=== PATIENT | female | born 1995 ===

== ENCOUNTER 2021-01-12 10:12 | Outpatient (REF) | payer MEDICAID, SELFPAY ==
[2021-01-13 09:22] LABS: BV Int Neg Control Negative (Negative); BV Int Pos Control Positive (Positive)
[2021-01-13 13:32] LABS: C. trachomatis RNA TMA NOT DETECTED (NOT DETECTED); N. gonorrhoeae RNA TMA NOT DETECTED (NOT DETECTED)
[2021-01-14 18:11] LABS: HPV mRNA E6/E7 rflx Not Detected (Not Detected)
== END 2021-01-12 10:13 | disposition home or self-care (01) ==
LOC: HO.LAB 10:12
PROVIDERS: Visit Provider Advanced Practice Midwife
DX: Z01.411 Encounter for gynecological examination (general) (routine) with abnormal findings (principal); Z11.51 Encounter for screening for human papillomavirus (HPV); N64.4 Mastodynia; N89.8 Other specified noninflammatory disorders of vagina; R87.615 Unsatisfactory cytologic smear of cervix; Z20.2 Contact with and (suspected) exposure to infections with a predominantly sexual mode of transmission
CPT/HCPCS: 36415; 87480; 87491; 87510; 87591; 87624; 87660; 88142

== ENCOUNTER → 2021-01-13 13:51 | Outpatient (REF) | payer MEDICAID, SELFPAY ==
--- NOTE | 2021-01-13 14:00 | ECG_ITS ---
Hook-up date: 2021-01-13 14:10:00 Duration: 25:35:00 Test Indications: PALPITATIONS Medications: 624274 QRS complexes * Ventricular ectopics which represent % of total QRS comp. * Supraventricular ectopics which represent % of total QRS comp. * Paced QRS complexs which represent % of total QRS comp. VENTRICULAR ECTOPY * Isolated * Bigeminal Cycles * Couplets * Runs * Beats in Runs * Beats LONGEST at * BPM at :: -- * Beats FASTEST at * BPM at :: -- SUPRAVENTRICULAR ECTOPY * Isolated * Couplets * Runs * Beats in Runs * Beats LONGEST at * BPM at :: -- * Beats FASTEST at * BPM at :: -- HEART RATES 53 MIN at 06:29:13 2021-01-14 72 AVG 128 MAX at 12:48:24 2021-01-14 LONGEST RR 1.2560 secs at 07:37:21 2021-01-14 S-T LEVELS Channel 1 - 128 mm at 14:10:00 2021-01-13 - 128 mm at 14:10:00 2021-01-13 Channel 2 - 128 mm at 14:10:00 2021-01-13 - 128 mm at 14:10:00 2021-01-13 Channel 3 - 128 mm at 03:32:91 -- - 128 mm at 03:32:91 Underlying rhythm is sinus; Average ventricular rate 72/min; range 53-128/min; No significant ectopy, tachy or fred-arrhythmias; Patient did not report any symptoms in the diary Referred By: Jose Manuel Weems Overread By: VERONICA PEDERSON
== END ==
LOC: HO.CARD 13:51
PROVIDERS: Visit Provider Internal Medicine
DX: R00.2 Palpitations (principal)
CPT/HCPCS: 93225; 93226

== ENCOUNTER 2021-02-02 14:13 | Outpatient (REF) | payer MEDICAID, SELFPAY ==
--- NOTE | ~2021-02-02 | US_ITS ---
EXAMINATION: LEFT BREAST ULTRASOUND CLINICAL INFORMATION: Pain 2-3 months quadrant, axilla, and areola. COMPARISON: None TECHNIQUE: Targeted left breast ultrasound FINDINGS: No abnormal cystic or solid mass identified. No region of abnormal distal sound shadowing. No edematous change within the parenchyma. US/US breast LT complete IMPRESSION: No specific ultrasound findings to suggest malignancy of the left breast. BI-RADS 1, negative Clinical follow-up.
== END 2021-02-02 14:14 | disposition home or self-care (01) ==
LOC: HO.MAMMO 14:13
PROVIDERS: Visit Provider Advanced Practice Midwife
DX: N64.4 Mastodynia (principal)
CPT/HCPCS: 76641

== ENCOUNTER → 2021-02-04 13:29 | Outpatient (BNVA) | payer MEDICAID, SELFPAY | PROVIDERS: Visit Provider Advanced Practice Midwife ==

== ENCOUNTER 2022-01-14 10:04 | Outpatient (REF) | payer MEDICAID, SELFPAY ==
[2022-01-14 13:14] LABS: Syphilis Screen Nonreactive (Nonreactive)
[2022-01-14 16:22] LABS: CT PCR NOT DETECTED (Not Detect.); NG PCR NOT DETECTED (Not Detect.)
[2022-01-15 08:07] LABS: HBsAGNum1 0.21 S/CO (0.00-0.99); HIV AB/AG Nonreactive (Nonreactive); HIV Num 1 0.05 S/CO (0.00-0.99); Hepatitis B Surface Antigen Negative (Negative)
[2022-01-15 08:50] LABS: ~HepC Num1 0.11 S/CO (0.00-0.79); ~Hepatitis C Antibody Nonreactive (Nonreactive)
[2022-01-15 12:15] LABS: BV Int Neg Control Negative (Negative); BV Int Pos Control Positive (Positive)
== END 2022-01-14 10:05 | disposition home or self-care (01) ==
LOC: HO.LAB 10:04
PROVIDERS: PCP Internal Medicine; Visit Provider Advanced Practice Midwife
DX: Z01.411 Encounter for gynecological examination (general) (routine) with abnormal findings (principal); Z11.4 Encounter for screening for human immunodeficiency virus [HIV]; N89.8 Other specified noninflammatory disorders of vagina; Z20.2 Contact with and (suspected) exposure to infections with a predominantly sexual mode of transmission
CPT/HCPCS: 36415; 86780; 86803; 87340; 87389; 87480; 87491; 87510; 87591; 87660

== ENCOUNTER 2022-02-01 12:25 | Outpatient (REF) | payer MEDICAID, SELFPAY ==
--- NOTE | ~2022-02-01 | US_ITS ---
EXAMINATION: US THYROID CLINICAL INFORMATION: Hypothyroidism. COMPARISON: Ultrasound thyroid soft tissues neck 03/30/2019 and10/26/2017. TECHNIQUE: Linear transducer grayscale and color Doppler examination with attention to the region of the thyroid. FINDINGS: SIZE: Measurements of the thyroid lobes and nodules are given in sagittal, anteroposterior and transverse dimensions respectively. Right Thyroid Lobe: 4.5 x 1.8 x 1.5 cm, volume 6.3 mL. Previously 4.8 x 1.8 x 1.4 cm, volume 6.3 mL. Parenchyma: The gland echotexture is heterogeneous. Thyroid vascularity is increased. Left Thyroid Lobe: 4.4 x 2.0 x 1.5 cm, volume 6.8 mL. Previously 4.0 x 1.8 x 1.4 cm, volume 5.1 mL. Parenchyma: The gland echotexture is heterogeneous. Thyroid vascularity is increased. Isthmus: 0.5 cm in maximum AP dimension. Previously 0.5 cm. Estimated total number of nodules greater than or equal to 1 cm: 0. Power Bender Operator nodules are described as follows: NODES: No lymphadenopathy is seen in the tissue surrounding the thyroid gland. US/US thyroid IMPRESSION: Diffusely heterogeneous hypervascular thyroid gland. No focal nodule appreciated.
== END 2022-02-01 12:26 | disposition home or self-care (01) ==
LOC: HO.US 12:25
PROVIDERS: PCP Internal Medicine; Visit Provider Internal Medicine
DX: E03.9 Hypothyroidism, unspecified (principal)
CPT/HCPCS: 76536

== ENCOUNTER 2023-08-17 10:40 | Outpatient (REF) | payer MEDICAID, SELFPAY | END 2023-08-17 10:41 | disposition home or self-care (01) | LOC: HO.CHCLDS 10:40 | PROVIDERS: Visit Provider Internal Medicine | DX: E03.9 Hypothyroidism, unspecified (principal) | CPT/HCPCS: 36415; 82607; 82746; 83540; 84439; 84443; 85025 ==

== ENCOUNTER 2024-04-08 12:53 | Emergency (ER) | payer MEDICAID, SELFPAY | END 2024-04-08 15:27 | disposition left against medical advice (07) | PROVIDERS: Emergency Provider Emergency Medicine; PCP Internal Medicine | DX: Z53.21 Procedure and treatment not carried out due to patient leaving prior to being seen by health care provider (principal) ==

== ENCOUNTER 2024-09-26 11:08 | Outpatient (AMB) | payer MEDICAID, SELFPAY ==
--- NOTE | 2024-09-26 11:20 | A.OFFVIS_ITS ---
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 She gets a very bad odor. But that is about it she does not ever normally write down when she gets a period but she thinks the last 1 was around September 01 so it should become soon. 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 She is sexually active. She says her primary doctors treating her for anemia and her thyroid and she is taking 1 iron a day and trying to eat better. She has follow-up scheduled with her doctor after she gets repeat labs done. [facility] Medical History (Updated 09/26/24 @ 11:53 by Betty Sierra CNM) History of ovarian cyst Anxiety Thyroid disease Surgical History (Updated 01/14/22 @ 10:55 by Alirio Manuel) History of D&C History of section History of bilateral tubal ligation Social History Alcohol intake: never Female Reproductive History Menstrual Age of Menarche: 12 Date of last menstrual period: 08/27/24 control method: none Total pregnancies: 3 Full term: 2 Ab spontaneous: 1 History of abnormal pap smear: Yes (2015) History of STI: Yes (Chlamydia 2010) Physical Exam Vital Signs: BMI result Body Mass Index 24.5 Const General: healthy appearing, comfortable, no acute distress, well developed and alert Nutritional Appearance: average body habitus Orientation/consciousness: patient oriented x3 Limitations: no limitations HEENT Head: Yes normocephalic Neck Neck: Yes normal visual inspection Chest Chest palpation & inspection: normal inspection of the chest Breast/axilla inspection: normal inspection of the breasts and normal inspection of the axillae Breast/axilla palpation: normal palpation of the breasts and normal palpation of the axillae Resp Effort & Inspection: normal respiratory effort GI Inspection: Yes normal to inspection, No Abdominal wall edema and No distended Palpation (GI): Soft to palpation and nontender Other: External exam within normal limits she has a pinkish brown watery discharge in it there is some malodor to it cervix is nulliparous long thick closed mobile nontender uterus midposition mobile nontender adnexa not enlarged good tone with Kegel. Pap and testing for STIs done. General: Yes bladder normal to palpation External Female Exam: normal external appearance and normal appearance of the urethra Speculum Exam - Vagina: normal appearance of the vagina, normal palpation and normal vaginal discharge Speculum Exam - Cervix: normal appearance of the cervix, normal palpation and nontender Bimanual exam- vagina & uterus: normal bimanual exam, normal palpation, uterine size normal, bladder normal to palpation, consistency normal, normal palpation, uterine mobility normal, uterine shape normal, No Cervical tenderness present, non-tender and no cervical motion tenderness Bimanual Exam- Adnexa, other: normal adnexae, no masses, normal and No adnexal tenderness Neuro General: patient oriented x3 Results Reviewed Results Reviewed: Name: Eli Hood Age/Sex: 25/F Attending: Prabha Stokes CNM : 1995 Submitted by: Prabha Stokes CNM Copies to: Physician,None MR #: [id number] Status: DEP REF Collected: 01/12/21 Location: .LAB Received: 01/13/21 Interpretation Satisfactory for evaluation. Negative for intraepithelial lesion or malignancy. Scant cellularity due to blood. Moderate inflammation. HPV mRNA E6/E7: NOT DETECTED This assay detects E6/E7 viral messenger RNA (mRNA) from 14 high-risk HPV types (16, 18, 31, 33, 35, 39, 45, 51, 52, 56, 58, 59, 66, 68) HPV testing performed by [facility], [place], [place]. See reference laboratory portion of the EMR for entire report. Clinical Information LMP: 12/25/20 Previous PAP test: 01/07/20, WNL Material Received ThinPrep Cervical Copies To Prabha Stokes [address] [place] [address] Physician,None , Electronically Signed By: Sherine Reid 01/17/21 5633 The Pap Test is a screening procedure with the inherent possibility of both f alse negative and false positive results. Results should be interpreted in the context of historic and current clinical findings. Reliability of the Pap Test is enhanced by performing the test on a regular repetitive basis. Patient: Medina Page 1 of 1 Assessment & Plan Assessment & Plan (1) Encounter for annual routine gynecological examination: Code(s): Z01.419 - Encounter for gynecological examination (general) (routine) without abnormal findings Category: Medical (2) Vaginal discharge: Code(s): N89.8 - Other specified noninflammatory disorders of vagina Category: Medical (3) Encounter for screening examination for sexually transmitted disease: Code(s): Z11.3 - Encounter for screening for infections with a predominantly sexual mode of transmission Category: Medical (4) Cervical cancer screening: Code(s): Z12.4 - Encounter for screening for malignant neoplasm of cervix Category: Medical (5) Vaginal odor: Comment: Only the day before menses start, such as today. Code(s): N89.8 - Other specified noninflammatory disorders of vagina Category: Medical Plan -----Discussed in this visit the following: healthy balanced diet, regular and consistent exercise, getting recommended health screens, doing the best she can for her particular health concerns, kegel exercises, pap smear screening and followup recommendations, mammography screening and SBE, normal changes in cycles in her life stage--- . Discussed patient has periods she does not feel that they are very heavy and that would not be a reason for her anemia she thinks she just needs to better. I reviewed the menses in detail she is not finding them painful the only issues this discharge with bad odor the day before some of her menses including today. We will wait testing for STIs to see if there is anything to treat. She was interested in getting blood tests for HIV etc. and she can get them done the same time she gets her follow-up labs for her anemia and her thyroid. Also she needs information for the portal to get on the portal.. Orders: Orders HIV Ab/Ag Today N89.8 - Other specified noninflammatory disorders of vagina, Z01.419 - Encounter for gynecological examination (general) (routine) without abnormal findings, Z11.3 - Encounter for screening for infections with a predominantly sexual mode of transmission, Z12.4 - Encounter for screening for malignant neoplasm of cervix Hepatitis B Surface Antigen Today N89.8 - Other specified noninflammatory disorders of vagina, Z01.419 - Encounter for gynecological examination (general) (routine) without abnormal findings, Z11.3 - Encounter for screening for infections with a predominantly sexual mode of transmission, Z12.4 - Encounter for screening for malignant neoplasm of cervix Hepatitis C Antibody Today N89.8 - Other specified noninflammatory disorders of vagina, Z01.419 - Encounter for gynecological examination (general) (routine) without abnormal findings, Z11.3 - Encounter for screening for infections with a predominantly sexual mode of transmission, Z12.4 - Encounter for screening for malignant neoplasm of cervix Syphilis Screen Today N89.8 - Other specified noninflammatory disorders of vagina, Z01.419 - Encounter for gynecological examination (general) (routine) without abnormal findings, Z11.3 - Encounter for screening for infections with a predominantly sexual mode of transmission, Z12.4 - Encounter for screening for malignant neoplasm of cervix Bacterial Vaginosis Panel Today Z01.419 - Encounter for gynecological examination (general) (routine) without abnormal findings CT NG by PCR Today Z01.419 - Encounter for gynecological examination (general) (routine) without abnormal findings Pap Smear Today Z01.419 - Encounter for gynecological examination (general) (r outine) without abnormal findings Medications: Discontinued metronidazole 0.75%(37.5mg/5gram) (Metrogel Vaginal) Discontinued Reason: Patient no longer taking 1 appful vaginal BEDTIME 5 days 70 grams 0RF fluconazole (Diflucan) administer on day 1 of therapy Discontinued Reason: Patient no longer taking 150 mg PO DAILY 1 tab 0RF Coding Level of Care Code Est Pt Prev Care 18-39y(00248) Diagnoses Encounter for annual routine gynecological examination Z01.419 Vaginal discharge N89.8 Encounter for screening examination for sexually transmitted disease Z11.3 Cervical cancer screening Z12.4 Vaginal odor N89.8
[2024-09-26 11:21] VITALS: BP 102/72; BMI 24.5
== END 2024-09-26 12:05 | disposition home or self-care (01) ==
PROVIDERS: PCP Internal Medicine; Visit Provider Advanced Practice Midwife
DX: Z01.419 Encounter for gynecological examination (general) (routine) without abnormal findings (principal); N89.8 Other specified noninflammatory disorders of vagina; Z11.3 Encounter for screening for infections with a predominantly sexual mode of transmission; Z12.4 Encounter for screening for malignant neoplasm of cervix
CPT/HCPCS: 99395

== ENCOUNTER 2024-09-26 11:08 | Outpatient (REF) | payer MEDICAID, SELFPAY | END 2024-09-26 11:09 | disposition home or self-care (01) | LOC: HO.LNP 11:08 | PROVIDERS: PCP Internal Medicine; Visit Provider Advanced Practice Midwife | DX: Z01.419 Encounter for gynecological examination (general) (routine) without abnormal findings (principal); N89.8 Other specified noninflammatory disorders of vagina; Z11.3 Encounter for screening for infections with a predominantly sexual mode of transmission; Z12.4 Encounter for screening for malignant neoplasm of cervix | CPT/HCPCS: 0352U; 87491; 87591; 99395 ==

== ENCOUNTER 2025-10-24 15:28 | Outpatient (REF) | payer MEDICAID, SELFPAY ==
[2025-10-24 21:25] LABS: CT PCR NOT DETECTED (Not Detect.); NG PCR NOT DETECTED (Not Detect.)
[2025-10-24 21:41] LABS: Bacterial Vaginosis PCR POSITIVE (Negative); Candida Group PCR NOT DETECTED (Not Detect); Candida glab krusei PCR NOT DETECTED (Not Detect); Trichomonas vaginalis PCR NOT DETECTED (Not Detect)
== END 2025-10-24 15:29 | disposition home or self-care (01) ==
LOC: HO.LNP 15:28
PROVIDERS: PCP Internal Medicine; Visit Provider Advanced Practice Midwife
DX: Z01.419 Encounter for gynecological examination (general) (routine) without abnormal findings (principal); E07.9 Disorder of thyroid, unspecified; Z20.2 Contact with and (suspected) exposure to infections with a predominantly sexual mode of transmission; Z98.51 Tubal ligation status
CPT/HCPCS: 81515; 87491; 87591; 87626; 88175

== ENCOUNTER 2025-10-24 15:28 | Outpatient (AMB) | payer MEDICAID, SELFPAY ==
--- NOTE | 2025-10-24 15:31 | MHC.OFFVIS ---
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 Intake Note: Here for manager risk management annual with std vaginal swabs Operations And Maintenance Technican Name: djiboutian Information Interpreted: non-clinical & clinical Highway Painter Helper: Highway Painter Helper Present (osiris) Accompanied by: Daughter Allergies No Known Allergies Allergy (Verified 01/14/22 10:23) morphine Allergy (Unknown, Uncoded 02/04/21 13:30) unk Medication List - Last Reconciled 10/24/25 by Mary Dia LPN levothyroxine 50 mcg PO DAILY Is last menstrual period known: Yes Last menstrual period: 10/02/25 Do you need a note to return to daycare/school/sports/work: No HPI HPI 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 She is not having any manager risk management concerns other than she wants full STI screening. Sometimes she has bleeding with intercourse. She does not have any abnormal discharge. Her last appointment was in 2021 her last Pap smear was negative in 2020 with negative HPV. She did have some question about an MRI that was done many years ago in [place] but her question is really about whether not her tubal ligation is working or not. Really what her question is is is there any way that she could get again she now has a different partner the tubal ligation was done 11 years ago when she was 19 years old after the of her 2nd child and she would like to have another baby. She has not seen her primary care provider in at least a couple of years she was on thyroid medication but ran out about 6 months ago. She does take multivitamins. [facility] Medical History History of ovarian cyst Anxiety Thyroid disease Surgical History History of D&C History of section History of bilateral tubal ligation Social History (Updated 10/24/25 @ 15:38 by Mary Dia LPN) Household Members: Children Housing: House Alcohol intake: never Patient Tobacco Use Status: Never used Tobacco Female Reproductive History Menstrual Age of Menarche: 12 Date of last menstrual period: 10/02/25 control method: permanent sterilization Total pregnancies: 2 Number of Living Children: 2 Physical Exam Vital Signs: Last Vital Signs BP 128/74 10/24/25 15:33 BMI result Body Mass Index 23.6 Const General: healthy appearing, comfortable, no acute distress, well developed and alert Nutritional Appearance: average body habitus Orientation/consciousness: patient oriented x3 Limitations: no limitations HEENT Head: Yes normocephalic Neck Neck: Yes normal visual inspection Chest Chest palpation & inspection: normal inspection of the chest Breast/axilla inspection: normal inspection of the breasts and normal inspection of the axillae Breast/axilla palpation: normal palpation of the breasts and normal palpation of the axillae Resp Effort & Inspection: normal respiratory effort GI Inspection: Yes normal to inspection, No Abdominal wall edema and No distended Palpation (GI): Soft to palpation and nontender Other: Normal external exam vagina pink and moist cervix multiparous pink smooth healthy appearing was friable with Pap scant white mucus noted testing done for gonorrhea chlamydia trichomoniasis bacterial vaginosis and yeast. Cervix long close thick mobile nontender uterus midposition to anteverted mobile nontender adnexa nontender nonenlarged good tone with Kegel. General: Yes bladder normal to palpation External Female Exam: normal external appearance and normal appearance of the urethra Speculum Exam - Vagina: normal appearance of the vagina, normal palpation and normal vaginal discharge Speculum Exam - Cervix: normal appearance of the cervix, normal palpation and nontender Bimanual exam- vagina & uterus: normal bimanual exam, normal palpation, uterine size normal, bladder normal to palpation, consistency normal, normal palpation, uterine mobility normal, uterine shape normal, No Cervical tenderness present, non-tender and no cervical motion tenderness Bimanual Exam- Adnexa, other: normal adnexae, no masses, normal and No adnexal tenderness Neuro General: patient oriented x3 Assessment & Plan Assessment & Plan (1) Encounter for annual routine gynecological examination: Code(s): Z01.419 - Encounter for gynecological examination (general) (routine) without abnormal findings Category: Medical (2) Cervical cancer screening: Code(s): Z12.4 - Encounter for screening for malignant neoplasm of cervix Category: Medical (3) Encounter for screening examination for sexually transmitted disease: Code(s): Z11.3 - Encounter for screening for infections with a predominantly sexual mode of transmission Category: Medical (4) Thyroid disease: Comment: Has run out of medication needs to make an appointment with PCC I will order TSH and free T4. Code(s): E07.9 - Disorder of thyroid, unspecified Category: Medical Plan -----Discussed in this visit the following: healthy balanced diet, regular and consistent exercise, getting recommended health screens, doing the best she can for her particular health concerns, kegel exercises, pap smear screening and followup recommendations, mammography screening and SBE, normal changes in cycles in her life stage--- .---I discussed with pt some of the optimal strategies for planning a , including achieving the best health she can before , including heathy balanced diet, exercise, wt loss to ideal BMI if appropriate, avoiding toxic substances and medications, not smoking, and taking a multivitamin w folic acid daily. Any specific health concerns should be managed before seeking/ putting oneself at risk of pregancy. In addition I reviewed normal cycles, fertility awareness and signs of ovulation, and timing to avoid, and achieve when she feel ready. I also discussed emotional and relationship and support readiness before embarking on . Her case the main issue is that infertility services and tubal ligation reversal procedures are not covered by most insurances. She might need to investigate on her own what the cost would be for consultation and services. I recommend checking reliable sites such as those affiliated with [facility] such as [facility]. She also needs to see her primary care provider and I asked her to go downstairs or upstairs to the office of her primary care provider and make an appointment on her way out of the building. She has been offer thyroid medication for some time she also wants blood testing for HIV hep B hep C and syphilis and I have ordered those she inquired about blood testing for herpes. I informed her why we do not do routine blood testing for herpes unless there is a particular reason she has never had an outbreak of any sort neither orally no generally and neither has her partner. Discussed that it is impossible to say if the antibodies were present from where and when they had been acquired. I told her I would add on TSH and free T4 reflex labs onto her lab work today so that she can have labs available to her PCC when she sees him and I would recommend that she request a referral from him to what ever fertility services they discussed but it would be [id number] and it is roommate to be very expensive. Additionally there is no birthing facilities at [place] so [facility] currently is the only facility for birthing services in the [facility]. Orders: Orders HPV High risk Today Z12.4 - Encounter for screening for malignant neoplasm of cervix CT NG by PCR Vag/Cerv Today Z11.3 - Encounter for screening for infections with a predominantly sexual mode of transmission Bacterial Vaginosis Panel Today Z12.4 - Encounter for screening for malignant neoplasm of cervix Hepatitis B Surface Antigen Today E07.9 - Disorder of thyroid, unspecified, Z01.419 - Encounter for gynecological examination (general) (routine) without abnormal findings, Z11.3 - Encounter for screening for infections with a predominantly sexual mode of transmission, Z12.4 - Encounter for screening for malignant neoplasm of cervix TSH reflex Free T4 Today E07.9 - Disorder of thyroid, unspecified, Z01.419 - Encounter for gynecological examination (general) (routine) without abnormal findings, Z11.3 - Encounter for screening for infections with a predominantly sexual mode of transmission, Z12.4 - Encounter for screening for malignant neoplasm of cervix Pap Smear Today Z12.4 - Encounter for screening for malignant neoplasm of cervix Hepatitis C Antibody Today E07.9 - Disorder of thyroid, unspecified, Z01.419 - Encounter for gynecological examination (general) (routine) without abnormal findings, Z11.3 - Encounter for screening for infections with a predominantly sexual mode of transmission, Z12.4 - Encounter for screening for malignant neoplasm of cervix HIV Ab/Ag Today E07.9 - Disorder of thyroid, unspecified, Z01.419 - Encounter for gynecological examination (general) (routine) without abnormal findings, Z11.3 - Encounter for screening for infections with a predominantly sexual mode of transmission, Z12.4 - Encounter for screening for malignant neoplasm of cervix Syphilis Screen Today E07.9 - Disorder of thyroid, unspecified, Z01.419 - Encounter for gynecological examination (general) (routine) without abnormal findings, Z11.3 - Encounter for screening for infections with a predominantly sexual mode of transmission, Z12.4 - Encounter for screening for malignant neoplasm of cervix Coding Level of Care Code Est Pt Prev Care 18-39y(74726) Diagnoses Encounter for annual routine gynecological examination Z01.419 Cervical cancer screening Z12.4 Encounter for screening examination for sexually transmitted disease Z11.3 Thyroid disease E07.9
[2025-10-24 15:33] VITALS: BP 128/74; BMI 23.6
--- OUTSIDE RECORDS SUMMARY | 2025-10-24 19:25 | XMS_ITS | Encounter Summary ---
Author Organization [employer] Address [address] [place] [address] Care Team Providers Care Land Development Manager Name Role Phone Jose Manuel Contreras MD Primary Care Prov ider Encounter Details Date Type Department Care Team (Late st Contact Info) Description 10/07/2022 Abstract [facility] [address] [place] [id number] Provider, MD Ellen Social History Tobacco Use Types Packs/Day Years Used Date Smoking Tobacco: Never Assessed Comments Unknown Sex and Gender Information Value Date Recorded Sex Assigned at Female 09/06/2022 10:22 AM EDT Legal Sex Female 10:22 AM EDT Gender Identity Female 09/06/2022 10:22 AM EDT Sexual Orientation Straight 09/06/2022 10 :22 AM EDT documented as of this encounter Plan of Treatment Not on file documented as of this encounter Visit Diagnoses Not on filedocumented in this encounter Care Teams Land Development Manager Relationship Specialty Start Date End Date Jose Manuel Contreras MD [address] [place] [address] PCP - General Internal Medicine 10/02/19 documented as of this encounter
--- OUTSIDE RECORDS SUMMARY | 2025-10-24 19:25 | XMS_ITS | Clinical Summary ---
Author Organization [employer] Address [address] [facility] [address] [place] [address] Care Team Providers Care Welder Pipe Making Name Role Phone Jose Manuel Contreras MD Primary Care Prov ider Allergies No known active allergies Medications carbamide peroxide (Debrox) 6.5 % otic solution 5 drops every 12 (twelve) hours. 1 Active cetirizine (ZyrTEC) 10 MG tablet Take 1 tablet (10 mg) by mouth in the morning. 90 tablet 3 3 Active levothyroxine (Synthroid, Levoxyl) 50 MCG tabletIndications: Acquired hypothyroidism TAKE 1 TABLET (50 MCG) BY MOUTH BEFORE BREAKFAST 90 tablet 5 Active ferrous sulfate 325 (65 Fe) MG tabletIndications: Iron deficiency anemia due to chronic blood loss TAKE 1 TABLET BY MOUTH WITH BREAKFAST 90 tablet 5 Active Active Problems Problem Noted Date Diagnosed Date Vaccination refused by patient 08/17/2023 Seasonal allergies 08/17/2023 Assessment & Plan (08/17/2023 10:34 AM EDT): Will start on cetirizine Screening for cervical cancer 08/17/2023 Assessment & Plan (08/17/2023 10:35 AM EDT): Patient will have her pap smear done at [facility] on September. Right upper quadrant pain 10/07/2022 Acquired hypothyroidism 03/14/2019 Assessment & Plan (06/21/2024 1:55 PM EDT): Patient not taking levothyroxin for over 2 months, she is feeling fatigue, weak, will renew medication and follow up in 6-8 weeks Assessment & Plan (12/09/2023 10:28 AM EST): Told to get blood test for guidance of therapy, she refers taking oral replacement daily Assessment & Plan (08/17/2023 10:34 AM EDT): Patient has not been taking her levothyroxine, refers started 2 weeks ago, will renew medication Assessment & Plan (10/11/2022 8:53 AM EST): Patient has gained weight, denied feeling depressed or having mood changes, will order new tsh for follow up, refers being taking medication daily Iron deficiency anemia 03/14/2019 Assessment & Plan (06/21/2024 1:56 PM EDT): Patient not taking oral iron replacement, will renew medication, folllow up in 6-8 weeks Assessment & Plan (12/09/2023 10:29 AM EST): Not taking iron replacement therapy, will order new labs for guidance Assessment & Plan (10/11/2022 8:54 AM EST): Denied feeling tired, will order new cbc with iron for guidance of therapy Vitamin D deficiency 03/14/2019 Encounters Date Type Department Care Team Description 08/23/2025 Refill [facility] [address] [place] [address] Sandy Martinez MD Acquired hypothyroidism; Iron deficiency anemia due to chronic blood loss from Last 3 Months Immunizations Immunization Administration Dates Next Due Influenza injectable quadriv alent IIV4 with preservative 10/06/2017 Family History Medical History Relation Name Comments No Known Problems Father No Known Problems Mother Diabetes Paternal Grandfather Thyroid disease Paternal Grandfather Arrhythmia Paternal Grandmother Relation Name Status Comments Father Mother Paternal Grandfather Paternal Grandmother Social History Tobacco Use Types Packs/Day Years Used Date Smoking Tobacco: Never Smokeless Tobacco: Never Tobacco Cessation:Counseling Given: Not Answered Alcohol Use Standard Drinks/Week Comments Never 0 (1 standard drink = 0.6 oz pur e alcohol) Depression Answer Date Recorded Patient Health Questionnaire-9 Score 7 08/17/2023 Housing Stability Answer Date Recorded What is your housing situation today? I have shannon ortega 08/22/[address] you li ve. Do you have problems with any of the following? None of the above 08/22/2023 Transportation Answer Date Recorded In the past 12 months, has l ack of transportation kept you from medical appts, meetings, work or from getting things needed for daily living? No 08/22/2023 Utilities Answer Date Recorded In the past 12 months, has t he electric, gas, oil or water company threatened to shut off services in your home? No 08/22/2023 Depression Answer Date Recorded Patient Health Questionnaire-2 Score 4 08/17/2023 Comments Unknown Sex and Gender Information Value Date Recorded Sex Assigned at Female 09/06/2022 10:22 AM EDT Legal Sex Female 10:22 AM EDT Gender Identity Female 09/06/2022 10:22 AM EDT Sexual Orientation Straight 09/06/2022 10 :22 AM EDT Last Filed Vital Signs Vital Sign Reading Time Taken Comments Blood Pressure 120/74 08/17/2023 10:07 AM EDT Pulse 74 08/17/2023 10:07 AM EDT Temperature 36.4 C (97.6 F) 08/17/2023 10:07 AM EDT Respiratory Rate 18 08/17/2023 10:0 7 AM EDT Oxygen Saturation 99% 08/17/2023 10: 07 AM EDT Inhaled Oxygen Concentration - - Weight 65.7 kg (144 lb 12.8 oz) 023 10:07 AM EDT Height 158 cm (5' 2.21 ) 08/17/2023 10: 07 AM EDT Body Mass Index 26.31 08/17/2023 10:07 AM EDT Plan of Treatment Health Maintenance Due Date Last Done Comments Disability Screening 1993 Alcohol/Substance Use Screening 2005 Family Planning (PISQ) 2008 HPV Vaccines (1 - 3-dose series) 2008 Hepatitis B Vaccines (1 of 3 - 19+ 3-dose series) 2012 DTaP/Tdap/Td Vaccines (1 - Tdap) 07/31/2019 07/30/2019 Tobacco Screening 10/11/2023 10/11/2022 Depression Screening 08/17/2024 08/17/2023, 08/17/2023 SDOH Screening 08/17/2024 08/17/2023 COVID-19 Vaccine (2 - 2024-2 6 season) 2025 10/19/2021 Influenza Vaccine (#1) 2025 10/06/2017 Cervical Cancer Screening 01/12/2026 HPV/Cotest 01/12/2026 01/12/2021 Pap Smear 01/12/2026 01/12/2021 Zoster Vaccines (1 of 2) 2043 RSV Patients and Patients Aged 60 years or older (1 - 1-dose 75+ series) 2068 HIV Screening Completed 01/14/2022, 03/02/2021 Hepatitis C Screening Completed 01/14/2022 HIB Vaccines Aged Out No longer eligi ble based on patient's age to complete this topic Hepatitis A Vaccines Aged Out No long er eligible based on patient's age to complete this topic IPV Vaccines Aged Out No longer eligi ble based on patient's age to complete this topic Meningococcal B Vaccine Aged Out No l onger eligible based on patient's age to complete this topic Meningococcal Vaccine Aged Out No milan venita eligible based on patient's age to complete this topic Pneumococcal Vaccine: Pediatrics (0 to 5 Years) and At-Risk Patients (6 to 49) Years Aged Out No longer eligible b ased on patient's age to complete this topic RSV under 20 months Aged Out No longe r eligible based on patient's age to complete this topic Rotavirus Vaccines Aged Out No longer eligible based on patient's age to complete this topic Procedures Procedure Name Priority Date/Time Associated Diagnosis Comments ZZZ HISTORICAL HIV AB/AG Routine 01/14/2022 11:57 AM EST HM PAP/HPV Routine 01/12/2021 from Last 3 Months or Most Recently Relevant to Health Maintenance Results * HIV AB/AG (01/14/2022 11:57 AM EST) HIV AB/AG Nonreactive Nonreactive [facility] Comment: HIV-1 p24 Ag and/or HIV-1/HIV-2 Ab not detected. A test result that is nonreactive does not exclude the possibility of exposure to or infection with HIV-1 and/or HIV-2. Nonreactive results in this assay for individuals with prior exposure to HIV-1 and/or HIV-2 may be due to antigen and antibody levels that are below the limit of detection of this assay. [employer] HIV Ag/Ab Combo assay result and supplemental assay results should be interpreted in conjunction with the patient's clinical presentation, history and other laboratory results. If the results are inconsistent with clinical evidence, additional testing is suggested to confirm the result. Hepatitis B Surface Antigen Negative Negative [facility] Hepatitis C Antibody Nonreactive Nonreactive [facility] Comment: Antibodies to HCV not detected; does not exclude early acute HCV infection. 01/14/2022 11:5 7 AM EST Prabha Stokes HISTORICAL/NON ORDERABLE LABS Fi nal Result [facility] [address] * Pap Smear (01/12/2021) Pap Negative for intraephithelial lesion or malignancy Negative for intraephithelial lesion or malignancy, Other HPV Undetected Undetected, Indeterminate, Quantitative, Not Detected Historical Provider HEALTH MAINTENANCE Final Result from Last 3 Months or Most Recently Relevant to Health Maintenance Insurance [facility] C3 Care Teams Welder Pipe Making Relationship Specialty Start Date End Date GuzmánJose Manuel Queen MD [address] [place] [id number] PCP - General Internal Medicine 10/02/19
--- OUTSIDE RECORDS SUMMARY | 2025-10-24 19:25 | XMS_ITS | Encounter Summary ---
Author Organization [employer] Address [address] [facility] [address] [place] [address] Care Team Providers Care Multiple Punch Press Operator Name Role Phone Jose Manuel Contreras MD Primary Care Prov ider Reason for Visit * Reason Onset Date Comments Appointment Request 11/18/2023 Encounter Details Date Type Department Care Team (Late st Contact Info) Description 11/18/2023 Telephone [facility] [address] [place] [address] Jose Manuel Contreras MD [address] [place], [place] [phone] Appointment Request Social History Tobacco Use Types Packs/Day Years Used Date Smoking Tobacco: Never Smokeless Tobacco: Never Alcohol Use Standard Drinks/Week Comments Never 0 (1 standard drink = 0.6 oz pur e alcohol) Depression Answer Date Recorded Patient Health Questionnaire-9 Score 7 08/17/2023 Housing Stability Answer Date Recorded What is your housing situation today? I have shannoneyal ortega 08/22/[address] you [...] AM EDT documented as of this encounter Miscellaneous Notes * Telephone Encounter - Kyung Hernández RN - 11/22/2023 10:36 AM EST TC X1 to pt for clarification as to why pt is requesting an appt with CNM. LVM to return call to nurses. * Telephone Encounter - Che Hedrick - 11/18/2023 1:04 PM EST Tc from pt requesting appt with Dr Ling. documented in this encounter Plan of Treatment Not on file documented as of this encounter Visit Diagnoses Not on filedocumented in this encounter Additional Health Concerns Assessment Noted Time PHQ-9 Depression Total Score: 7 08/17/20 23 10:33 AM EDT documented as of this encounter Care Teams Multiple Punch Press Operator Relationship Specialty Start Date End Date Jose Manuel Contreras MD [address] [place] [id number] PCP - General Internal Medicine 10/02/19 documented as of this encounter
--- OUTSIDE RECORDS SUMMARY | 2025-10-24 19:25 | XMS_ITS | Encounter Summary ---
Author Organization [employer] Address [address] [facility] [address] [place] [address] Care Team Providers Care Fire Protection Engineering Technician Name Role Phone Jose Manuel Contreras MD Primary Care Prov ider Encounter Details Date Type Department Care Team ([facility] st Contact Info) Description 08/22/2023 Orders Only [facility] [address] [place], [place] [phone] Jose Manuel Contreras MD [address] [place] [address] Acquired hypothyroidism (Primary Dx); Iron deficiency anemia due to chronic blood loss Social History Tobacco Use Types Packs/Day Years [...] as of this encounter Plan of Treatment Scheduled Orders Name Type Priority Associated Diagnoses Orde r Schedule TSH W/Reflex to FT4 Lab Routine Acquired hypothyroidism Expected: 08/22/2023 (Approximate), Expires: 08/22/2024 CBC auto differential Lab Routine Iron deficiency anemia due to chronic blood loss Expected: 08/22/2023 (Approximate), Expires: 08/22/2024 Iron And Total Iron Binding Capacity Lab Routine Iron deficiency anemia due to chronic blood loss Expected: 08/22/2023, Expires: 08/22/2024 documented as of this encounter Visit Diagnoses Diagnosis Acquired hypothyroidism- Primary Unspecified hypothyroidism Iron deficiency anemia due to chronic blood loss Iron deficiency anemia secondary to blood loss (chronic) documented in this encounter Additional Health Concerns Assessment Noted Time PHQ-9 Depression Total Score: 7 08/17/20 23 10:33 AM EDT documented as of this encounter Care Teams Fire Protection Engineering Technician Relationship Specialty Start Date End Date Jose Manuel Contreras MD [address] [place] [id number] PCP - General Internal Medicine 10/02/19 documented as of this encounter
== END 2025-10-24 16:10 | disposition home or self-care (01) ==
LOC: HO.HWSM 15:28
PROVIDERS: PCP Internal Medicine; Visit Provider Advanced Practice Midwife
DX: Z01.419 Encounter for gynecological examination (general) (routine) without abnormal findings (principal); Z12.4 Encounter for screening for malignant neoplasm of cervix; Z11.3 Encounter for screening for infections with a predominantly sexual mode of transmission; E07.9 Disorder of thyroid, unspecified
CPT/HCPCS: 99395; 99459